=== PATIENT | male | born 2000 | race Caucasian/White ===

== ENCOUNTER 2022-12-20 08:24 | Emergency (ER) | payer OTHER ==
[~2022-12-20] VITALS: Ht 167.6 cm; Wt 81.8 kg
[2022-12-20] MEDS ORDERED: INSU100V SQ (08:31)
[2022-12-20] MEDS ORDERED: INSLAN SQ (08:31)
[2022-12-20] MEDS ORDERED: AMPH15CA PO (08:31)
[2022-12-20] MEDS ORDERED: ACETAMINOPHEN/CODEINE 300-30 MG TABLET PO ONE (09:15)
[2022-12-20] MEDS ORDERED: IBUPROFEN 600 MG TABLET PO ONE (09:15)
[2022-12-20 10:10] VITALS: BP 125/78
[2022-12-20] MEDS ORDERED: ACET-2080 PO (10:25)
[2022-12-20] MEDS ORDERED: IBUP-1554 PO (10:25)
== END 2022-12-20 10:37 | disposition home or self-care (01) ==
LOC: EMS 08:29
DX: S83.92XA Sprain of unspecified site of left knee, initial encounter (principal); S93.602A Unspecified sprain of left foot, initial encounter; S93.402A Sprain of unspecified ligament of left ankle, initial encounter; E11.9 Type 2 diabetes mellitus without complications; W22.8XXA Striking against or struck by other objects, initial encounter; Y93.01 Activity, walking, marching and hiking; Y92.89 Other specified places as the place of occurrence of the external cause; Y99.8 Other external cause status
CPT/HCPCS: 29505; 99284

== ENCOUNTER 2024-01-14 23:14 | Emergency (ER) | payer OTHER ==
[~2024-01-14] VITALS: Ht 165.1 cm; Wt 81.8 kg
[~2024-01-14 23:14] MED LIST: ACET-2080 PO; AMPH15CA PO; IBUP-1554 PO; INSLAN SQ; INSU100V SQ
[2024-01-14 23:18] VITALS: TEMP 97.3
[2024-01-14] MEDS: FAMOTIDINE 20 MG/2 ML VIAL IVP ONE (23:49)
[2024-01-14] MEDS: SODIUM CHLORIDE 0.9% 1,000 ML IV ONE (23:50)
[2024-01-14] MEDS: ONDANSETRON HCL 4 MG/2 ML VIAL IVP ONE (23:50)
[2024-01-14] MEDS: LORazepam 2 MG/ML VIAL IVP ONE (23:51)
[2024-01-15 00:12] LABS: ANION GAP 9 mmol/L (8-16); CALCIUM, TOTAL 8.9 mg/dL (8.8-10.5); CARBON DIOXIDE 28 mmol/L (22-29); CHLORIDE 99 mmol/L (98-107); CREATININE 0.72 mg/dL (0.60-1.30); GLOMERULAR FILTR. RATE CALC > 60 mL/min (>60); GLUCOSE,RANDOM 263 mg/dL (70-110); LIPASE 10 U/L (16-77); POTASSIUM 3.1 mmol/L (3.5-5.1); SODIUM SERUM 136 mmol/L (136-145); UREA NITROGEN, BLOOD 14 mg/dL (7-18)
[2024-01-15 00:21] LABS: LACTIC ACID 1.6 mmol/L (0.4-2.0)
[2024-01-15 00:24] LABS: BASOPHILS % (AUTO) 0.2 % (0.0-2.0); EOSINOPHILS % (AUTO) 0.7 % (1.0-6.0); HEMOGLOBIN 15.8 g/dL (13.5-17.5); LYMPHOCYTES # (AUTO) 1.4 K/uL (1.0-4.8); LYMPHOCYTES % (AUTO) 10.1 % (22.0-44.0); MEAN CORPUSCULAR HEMOGLOBIN 30.4 pg (26.0-34.0); MEAN CORPUSCULAR HGB CONC 34.4 G/dL (31.0-37.0); MEAN CORPUSCULAR VOLUME 88 fL (80-100); MONOCYTES % (AUTO) 7.4 % (2.0-9.0); NEUTROPHILS # (AUTO) 11.1 K/uL (1.8-7.7); NEUTROPHILS % (AUTO) 81.6 % (40.0-70.0); PLATELET COUNT (AUTO) 286 K/uL (150-450); RED BLOOD CELL COUNT(AUTO) 5.22 MIL/uL (4.50-5.90); RED CELL DISTRIBUTION WIDTH 12.9 % (11.5-14.5); WHITE BLOOD COUNT (AUTO) 13.6 K/uL (4.5-11.0)
[2024-01-15] MEDS: OMEPRAZOLE 20 MG CAPSULE PO ONE (01:22)
[2024-01-15] MEDS: PB/HYOSCY/ATR/SCOP/LIDO/MAALOX 55 ML BOTTLE PO ONE (01:22)
[2024-01-15] MEDS ORDERED: DIPH-1130 PO (02:06)
[2024-01-15] MEDS ORDERED: OMEP20 PO (02:06)
[2024-01-15] MEDS ORDERED: DULO20CA71 PO (02:06)
[2024-01-15] MEDS ORDERED: ONDA-104 PO (02:06)
[2024-01-15] MEDS ORDERED: IBUP-1554 PO (02:06)
[2024-01-15 02:16] VITALS: BP 128/69; PULSE 102; RESP 18
[2024-01-15] MEDS: POTASSIUM CHLORIDE 20 MEQ ER TABLET PO ONE (02:22)
== END 2024-01-15 02:40 | disposition home or self-care (01) ==
LOC: EMS 23:16
DX: K52.9 Noninfective gastroenteritis and colitis, unspecified (principal); F41.0 Panic disorder [episodic paroxysmal anxiety]; F90.9 Attention-deficit hyperactivity disorder, unspecified type; E11.65 Type 2 diabetes mellitus with hyperglycemia; E87.6 Hypokalemia; R11.10 Vomiting, unspecified; Z79.4 Long term (current) use of insulin; Z79.899 Other long term (current) drug therapy
CPT/HCPCS: 99284; 96374; 96375; 96361; 80048; 83605; 83690; 85025; 36415; J3490; J2060; J2405; J7030

== ENCOUNTER 2024-02-18 16:57 | Emergency (ER) | payer OTHER ==
[~2024-02-18] VITALS: Ht 165.1 cm; Wt 75.0 kg
[~2024-02-18 16:57] MED LIST changes: +DIPH-1130 PO; +DULO20CA71 PO; +OMEP20 PO; +ONDA-104 PO
[2024-02-18 17:12] VITALS: BP 123/60; PULSE 154; RESP 22; TEMP 98
[2024-02-18] MEDS ORDERED: CLIN300C58 PO (17:38)
[2024-02-18] MEDS ORDERED: OXYC-38 PO (17:38)
[2024-02-18] MEDS ORDERED: IBUP-1493 PO (17:38)
[2024-02-18] MEDS: CLINDAMYCIN HCL 150 MG CAPSULE PO ONE (17:42)
[2024-02-18] MEDS: HYDROCODONE/ACETAMINOPHEN 5-325 MG TABLET PO ONE (17:42)
[2024-02-18] MEDS: KETOROLAC TROMETHAMINE 30 MG/ML VIAL IM ONE (17:43)
[2024-02-18] MEDS ORDERED: MIRT-92 PO (18:23)
[2024-02-18] MEDS ORDERED: DEXT10TA19 PO (18:23)
[2024-02-18] MEDS ORDERED: DEXT20TA5 PO (18:23)
== END 2024-02-18 17:55 | disposition home or self-care (01) ==
LOC: EMS 16:57
DX: K02.9 Dental caries, unspecified (principal); Z88.0 Allergy status to penicillin
CPT/HCPCS: 99283; 96372; J1885